=== PATIENT | female | born 1975 | race Caucasian/White ===

== ENCOUNTER 2022-05-14 15:29 | Inpatient (IN) | payer MEDICARE, MEDICAID ==
[~2022-05-14] VITALS: Ht 160 cm; Wt 79.3 kg
[~2022-05-14 15:29] MED LIST: BUSP5TAB3; CORTSUSP; DIVA-85; LEVO112T7
[2022-05-14 16:17] LABS: COVID AG,FIA SOURCE NASOPHARYNGEAL
[2022-05-14 16:54] LABS: BASOPHILS % (AUTO) 0.2 % (0.0-2.0); EOSINOPHILS % (AUTO) 0 % (1.0-6.0); HEMATOCRIT 38.7 % (36-46); LYMPHOCYTES % (AUTO) 4.9 % (22.0-44.0); MEAN CORPUSCULAR HEMOGLOBIN 30.7 pg (26.0-34.0); MEAN CORPUSCULAR HGB CONC 33.7 G/dL (31.0-37.0); MEAN CORPUSCULAR VOLUME 91 fL (80-100); MONOCYTES # (AUTO) 1.1 K/uL (0.1-1.0); MONOCYTES % (AUTO) 5.7 % (2.0-9.0); NEUTROPHILS # (AUTO) 17.8 K/uL (1.8-7.7); PLATELET COUNT (AUTO) 334 K/uL (150-450); RED BLOOD CELL COUNT(AUTO) 4.24 MIL/uL (4.00-5.20); RED CELL DISTRIBUTION WIDTH 12.6 % (11.5-14.5)
[2022-05-14 16:55] LABS: NEUTROPHILS % (AUTO) 89.2 % (40.0-70.0)
[2022-05-14 17:09] LABS: PLATELET MORPHOLOGY COMMENT GIANT PLTS PRESENT
[2022-05-14 17:11] LABS: LITHIUM 0.61 mmol/L (0.60-1.20)
[2022-05-14 17:15] LABS: ALANINE AMINOTRANSFERASE 20 U/L (12-78); ALBUMIN 4.1 g/dL (3.4-5.0); ALKALINE PHOSPHATASE 103 U/L (46-116); ANION GAP 13 mmol/L (8-16); ASPARTATE AMINOTRANSFERASE 19 U/L (15-37); BILIRUBIN,TOTAL 0.4 mg/dL (0.1-1.0); CALCIUM, TOTAL 9.3 mg/dL (8.8-10.5); CARBON DIOXIDE 21 mmol/L (22-29); CHLORIDE 103 mmol/L (98-107); GLUCOSE,RANDOM 121 mg/dL (70-110); HCG,QUANTITATIVE < 1 mIU/mL (0-6); SODIUM SERUM 137 mmol/L (136-145); TOTAL PROTEIN, SERUM 7.8 g/dL (6.4-8.2); UREA NITROGEN, BLOOD 5 mg/dL (7-18)
[2022-05-14] MEDS ORDERED: HALOPERIDOL 5 MG TABLET PO ONE (17:15)
[2022-05-14] MEDS ORDERED: LORazepam 2 MG TABLET PO ONE (17:15)
[2022-05-14 17:19] LABS: GLOMERULAR FILTR. RATE CALC > 60 mL/min (>60); POTASSIUM 2.8 mmol/L (3.5-5.1)
[2022-05-14] MEDS ORDERED: POTASSIUM CHLORIDE 20 MEQ ER TABLET PO ONE (17:30)
[2022-05-14 21:41] VITALS: BP 138/88
[2022-05-15] MEDS ORDERED: PETROLATUM,WHITE 28 GM JELLY TP PRN (06:15)
[2022-05-15] MEDS ORDERED: NICOTINE 14 MG/24 HOUR PATCH TD PRN (06:15)
[2022-05-15] MEDS ORDERED: DOCUSATE SODIUM 100 MG CAPSULE PO PRN (06:15)
[2022-05-15] MEDS ORDERED: IBUPROFEN 400 MG TABLET PO PRN (06:15)
[2022-05-15] MEDS ORDERED: MAGNESIUM HYDROXIDE SUSPENSION 30 ML UDCUP PO PRN (06:15)
[2022-05-15] MEDS ORDERED: CloNIDine HCL 0.1 MG TABLET PO PRN (06:15)
[2022-05-15] MEDS ORDERED: ONDANSETRON HCL 4 MG TABLET PO PRN (06:15)
[2022-05-15] MEDS ORDERED: GuaiFENesin/D-METHORPHAN [SUGAR-FREE] 200-20MG/10 ML SYRUP UDCUP PO PRN (06:15)
[2022-05-15] MEDS ORDERED: LOPERAMIDE HCL 2 MG CAPSULE PO PRN (06:15)
[2022-05-15] MEDS ORDERED: ALBUTEROL SULFATE HFA 90 MCG/PUFF 8 GM INHALER IH PRN (06:15)
[2022-05-15] MEDS ORDERED: MAG HYDROX/AL HYDROX/SIMETH ES 30 ML SUSPENSION UDCUP PO PRN (06:15)
[2022-05-15] MEDS ORDERED: ACETAMINOPHEN 325 MG TABLET PO PRN (06:15)
[2022-05-15] MEDS: LEVOTHYROXINE SODIUM 112 MCG TABLET PO SCH (06:55)
[2022-05-15] MEDS ORDERED: LEVOTHYROXINE SODIUM 112 MCG TABLET PO SCH (08:00)
[2022-05-15 08:10] VITALS: BP 143/87
[2022-05-15 11:47] LABS: AMPHET/METH SCREEN,URINE NEGATIVE (NEGATIVE); BARBITURATE SCREEN, URINE NEGATIVE (NEGATIVE); BENZODIAZEPINES SCREEN,URINE NEGATIVE (NEGATIVE); CANNABINOID SCREEN,URINE NEGATIVE (NEGATIVE); COCAINE SCREEN,URINE NEGATIVE (NEGATIVE); METHADONE SCREEN, URINE NEGATIVE (NEGATIVE); OPIATE SCREEN,URINE NEGATIVE (NEGATIVE); PHENCYCLIDINE SCREEN,URINE NEGATIVE (NEGATIVE)
[2022-05-15] MEDS: SERTRALINE HCL 50 MG TABLET PO SCH (12:13)
[2022-05-15] MEDS: BusPIRone HCL 5 MG TABLET PO SCH (12:13)
[2022-05-15] MEDS: DIVALPROEX SODIUM 250 MG DR TABLET PO SCH (16:19)
[2022-05-15] MEDS: LORazepam 2 MG TABLET PO PRN (16:19)
[2022-05-15] MEDS: HALOPERIDOL 5 MG TABLET PO PRN (16:19)
[2022-05-15 16:38] VITALS: BP 122/71
[2022-05-16] MEDS: LEVOTHYROXINE SODIUM 112 MCG TABLET PO SCH (06:25)
[2022-05-16 07:56] LABS: ANION GAP 12 mmol/L (8-16); CARBON DIOXIDE 23 mmol/L (22-29); CHLORIDE 105 mmol/L (98-107); CREATININE 0.54 mg/dL (0.60-1.30); GLOMERULAR FILTR. RATE CALC > 60 mL/min (>60); GLUCOSE,RANDOM 113 mg/dL (70-110); POTASSIUM 3.9 mmol/L (3.5-5.1); SODIUM SERUM 140 mmol/L (136-145); UREA NITROGEN, BLOOD 9 mg/dL (7-18)
[2022-05-16 08:02] LABS: ALANINE AMINOTRANSFERASE 25 U/L (12-78); ALBUMIN 3.6 g/dL (3.4-5.0); ALKALINE PHOSPHATASE 94 U/L (46-116); ASPARTATE AMINOTRANSFERASE 21 U/L (15-37); BILIRUBIN,TOTAL 0.2 mg/dL (0.1-1.0); TOTAL PROTEIN, SERUM 7.2 g/dL (6.4-8.2)
[2022-05-16 08:20] VITALS: BP 135/86
[2022-05-16] MEDS: BusPIRone HCL 5 MG TABLET PO SCH (10:03)
[2022-05-16] MEDS: SERTRALINE HCL 50 MG TABLET PO SCH (10:03)
[2022-05-16] MEDS: DIVALPROEX SODIUM 250 MG DR TABLET PO SCH ×2 (10:03→16:31)
[2022-05-16 12:44] LABS: CHOL/HDL RATIO 2.8 (3.9-5.7); CHOLESTEROL 142 mg/dL (131-200); HDL CHOLESTEROL 50 mg/dL (40-60); LDL CHOL (CALC.) 76 mg/dL (0-130); THYROID STIMULATING HORMONE 1.13 uIU/mL (0.36-3.74); TRIGLYCERIDES 81 mg/dL (15-150)
[2022-05-16 16:13] VITALS: BP 152/99
[2022-05-16] MEDS: ZOLPIDEM TARTRATE 10 MG TABLET PO PRN (22:37)
[2022-05-17] MEDS: LEVOTHYROXINE SODIUM 112 MCG TABLET PO SCH (06:33)
[2022-05-17 07:53] LABS: BASOPHILS % (AUTO) 0.9 % (0.0-2.0); EOSINOPHILS % (AUTO) 0.6 % (1.0-6.0); HEMATOCRIT 37.7 % (36-46); HEMOGLOBIN 12.7 g/dL (12.0-16.0); LYMPHOCYTES # (AUTO) 2.3 K/uL (1.0-4.8); MEAN CORPUSCULAR HEMOGLOBIN 31.2 pg (26.0-34.0); MEAN CORPUSCULAR HGB CONC 33.9 G/dL (31.0-37.0); MEAN CORPUSCULAR VOLUME 92 fL (80-100); MONOCYTES # (AUTO) 0.6 K/uL (0.1-1.0); MONOCYTES % (AUTO) 7.3 % (2.0-9.0); NEUTROPHILS # (AUTO) 5.3 K/uL (1.8-7.7); NEUTROPHILS % (AUTO) 63.2 % (40.0-70.0); PLATELET COUNT (AUTO) 317 K/uL (150-450); RED BLOOD CELL COUNT(AUTO) 4.09 MIL/uL (4.00-5.20); RED CELL DISTRIBUTION WIDTH 12.9 % (11.5-14.5)
[2022-05-17 08:00] VITALS: BP 136/83
[2022-05-17 08:02] LABS: ANION GAP 10 mmol/L (8-16); CALCIUM, TOTAL 8.9 mg/dL (8.8-10.5); CARBON DIOXIDE 23 mmol/L (22-29); CHLORIDE 105 mmol/L (98-107); CREATININE 0.64 mg/dL (0.60-1.30); GLUCOSE,RANDOM 146 mg/dL (70-110); SODIUM SERUM 138 mmol/L (136-145); UREA NITROGEN, BLOOD 9 mg/dL (7-18)
[2022-05-17 08:03] LABS: GLOMERULAR FILTR. RATE CALC > 60 mL/min (>60)
[2022-05-17 08:24] VITALS: BP 136/83
[2022-05-17] MEDS: DIVALPROEX SODIUM 250 MG DR TABLET PO SCH ×2 (09:30→16:59)
[2022-05-17] MEDS: BusPIRone HCL 5 MG TABLET PO SCH (09:30)
[2022-05-17] MEDS: SERTRALINE HCL 50 MG TABLET PO SCH (09:31)
[2022-05-17 16:06] VITALS: BP 131/82
[2022-05-17 20:07] VITALS: BP 133/77
[2022-05-17] MEDS: ZOLPIDEM TARTRATE 10 MG TABLET PO PRN (21:08)
[2022-05-18] MEDS: LEVOTHYROXINE SODIUM 112 MCG TABLET PO SCH (06:37)
[2022-05-18] MEDS: DIVALPROEX SODIUM 250 MG DR TABLET PO SCH ×2 (08:04→16:58)
[2022-05-18] MEDS: SERTRALINE HCL 50 MG TABLET PO SCH (08:04)
[2022-05-18] MEDS: BusPIRone HCL 5 MG TABLET PO SCH (08:04)
[2022-05-18 08:36] VITALS: BP 154/83
[2022-05-18 17:09] VITALS: BP 136/89
[2022-05-18] MEDS: ZOLPIDEM TARTRATE 10 MG TABLET PO PRN (20:54)
[2022-05-18] MEDS: HALOPERIDOL 5 MG TABLET PO PRN (23:28)
[2022-05-18] MEDS: LORazepam 2 MG TABLET PO PRN (23:28)
[2022-05-19] MEDS: LEVOTHYROXINE SODIUM 112 MCG TABLET PO SCH (06:30)
[2022-05-19 08:08] VITALS: BP 121/85
[2022-05-19] MEDS: SERTRALINE HCL 50 MG TABLET PO SCH (08:12)
[2022-05-19] MEDS: HALOPERIDOL 5 MG TABLET PO PRN (08:12)
[2022-05-19] MEDS: DIVALPROEX SODIUM 250 MG DR TABLET PO SCH ×2 (08:12→16:26)
[2022-05-19] MEDS: LORazepam 2 MG TABLET PO PRN (08:13)
[2022-05-19] MEDS: BusPIRone HCL 5 MG TABLET PO SCH (08:15)
[2022-05-19 16:01] VITALS: BP 122/84
[2022-05-19] MEDS: ZOLPIDEM TARTRATE 10 MG TABLET PO PRN (21:20)
[2022-05-20] MEDS: LEVOTHYROXINE SODIUM 112 MCG TABLET PO SCH (06:55)
[2022-05-20 06:57] LABS: COVID AG,FIA SOURCE NASAL SWAB
[2022-05-20 08:01] VITALS: BP 115/76
[2022-05-20] MEDS: DIVALPROEX SODIUM 250 MG DR TABLET PO SCH (08:13)
[2022-05-20] MEDS: SERTRALINE HCL 50 MG TABLET PO SCH (08:13)
[2022-05-20] MEDS: BusPIRone HCL 5 MG TABLET PO SCH (08:13)
[2022-05-20] MEDS ORDERED: SERT-439 PO (11:58)
[2022-05-20] MEDS ORDERED: BUSP5TAB3 PO (11:58)
[2022-05-20] MEDS ORDERED: DIVA-111 PO (11:58)
[2022-05-20] MEDS ORDERED: LEVO112T7 PO (11:58)
== END 2022-05-20 14:25 | disposition home or self-care (01) | DRG 885 ==
LOC: EMS 15:31 → 3EC 20:04
PROVIDERS: ADMIT Psychiatry & Neurology Child & Adolescent Psychiatry; ATTEND Psychiatry & Neurology Child & Adolescent Psychiatry
DX: F20.0 Paranoid schizophrenia (principal); F10.10 Alcohol abuse, uncomplicated; D72.829 Elevated white blood cell count, unspecified; F41.9 Anxiety disorder, unspecified; E03.9 Hypothyroidism, unspecified; E87.6 Hypokalemia; R73.9 Hyperglycemia, unspecified; Z20.822 Contact with and (suspected) exposure to COVID-19; Z78.1 Physical restraint status; Z79.899 Other long term (current) drug therapy; Z91.14 Patient's other noncompliance with medication regimen
CPT/HCPCS: 80048; 80053; 80061; 80164; 80178; 80307; 83036; 84443; 84702; 84703; 85025; 99285; G0480

== ENCOUNTER 2022-05-27 15:09 | Inpatient (IN) | payer MEDICARE, MEDICAID ==
[~2022-05-27] VITALS: Ht 162.6 cm; Wt 81.7 kg
[~2022-05-27 15:09] MED LIST changes: -BUSP5TAB3; +BUSP5TAB3 PO; -CORTSUSP; +DIVA-111 PO; -DIVA-85; -LEVO112T7; +LEVO112T7 PO; +SERT-439 PO
[2022-05-27 17:28] LABS: BASOPHILS % (AUTO) 1.2 % (0.0-2.0); EOSINOPHILS % (AUTO) 0.1 % (1.0-6.0); HEMATOCRIT 36.9 % (36-46); HEMOGLOBIN 12.3 g/dL (12.0-16.0); LYMPHOCYTES # (AUTO) 2.5 K/uL (1.0-4.8); LYMPHOCYTES % (AUTO) 18.6 % (22.0-44.0); MEAN CORPUSCULAR HEMOGLOBIN 30.9 pg (26.0-34.0); MEAN CORPUSCULAR HGB CONC 33.4 G/dL (31.0-37.0); MEAN CORPUSCULAR VOLUME 93 fL (80-100); MONOCYTES # (AUTO) 1.1 K/uL (0.1-1.0); MONOCYTES % (AUTO) 8.1 % (2.0-9.0); NEUTROPHILS # (AUTO) 9.9 K/uL (1.8-7.7); PLATELET COUNT (AUTO) 282 K/uL (150-450); RED BLOOD CELL COUNT(AUTO) 3.99 MIL/uL (4.00-5.20); RED CELL DISTRIBUTION WIDTH 13.1 % (11.5-14.5)
[2022-05-27 17:30] LABS: COVID AG,FIA SOURCE NASOPHARYNGEAL
[2022-05-27 17:37] LABS: ANION GAP 13 mmol/L (8-16); CALCIUM, TOTAL 8.6 mg/dL (8.8-10.5); CARBON DIOXIDE 26 mmol/L (22-29); CHLORIDE 101 mmol/L (98-107); CREATININE 0.53 mg/dL (0.60-1.30); GLUCOSE,RANDOM 132 mg/dL (70-110); POTASSIUM 3.1 mmol/L (3.5-5.1); SODIUM SERUM 140 mmol/L (136-145); UREA NITROGEN, BLOOD 16 mg/dL (7-18)
[2022-05-27 17:38] LABS: GLOMERULAR FILTR. RATE CALC > 60 mL/min (>60)
[2022-05-27 17:53] LABS: ALANINE AMINOTRANSFERASE 21 U/L (12-78); ALBUMIN 3.7 g/dL (3.4-5.0); ALKALINE PHOSPHATASE 98 U/L (46-116); ASPARTATE AMINOTRANSFERASE 18 U/L (15-37); BILIRUBIN,TOTAL 0.3 mg/dL (0.1-1.0); HCG,QUANTITATIVE < 1 mIU/mL (0-6); TOTAL PROTEIN, SERUM 7.3 g/dL (6.4-8.2); VALPROIC ACID 8 mcg/mL (50-100)
[2022-05-27] MEDS ORDERED: POTASSIUM CHLORIDE 20 MEQ ER TABLET PO ONE (18:15)
[2022-05-27] MEDS ORDERED: LORazepam 2 MG TABLET PO ONE (18:15)
[2022-05-27] MEDS ORDERED: DiphenhydrAMINE HCL 50 MG CAPSULE PO ONE (18:15)
[2022-05-27] MEDS ORDERED: HALOPERIDOL 5 MG TABLET PO ONE (18:15)
[2022-05-27] MEDS ORDERED: OXCA600T18 PO (18:19)
[2022-05-27] MEDS ORDERED: LITH450CRT PO (18:19)
[2022-05-27] MEDS ORDERED: OLAN10 PO (18:19)
[2022-05-27] MEDS ORDERED: OLAN5TAB77 PO (18:19)
[2022-05-27] MEDS ORDERED: LORazepam 2 MG/ML VIAL IM ONE (19:30)
[2022-05-27] MEDS ORDERED: DiphenhydrAMINE HCL 50 MG/ML VIAL IM ONE (19:30)
[2022-05-27] MEDS ORDERED: HALOPERIDOL LACTATE 5 MG/ML VIAL IM ONE (19:30)
[2022-05-28 03:38] VITALS: BP 120/76
[2022-05-28 07:55] VITALS: BP 121/76
[2022-05-28] MEDS: HALOPERIDOL 5 MG TABLET PO PRN (08:28)
[2022-05-28] MEDS: LORazepam 2 MG TABLET PO PRN (08:28)
[2022-05-28 09:21] VITALS: BP 121/76
[2022-05-28] MEDS: BusPIRone HCL 15 MG TABLET PO SCH ×2 (10:27→17:14)
[2022-05-28] MEDS: OXcarbazepine 300 MG TABLET PO SCH ×2 (10:27→17:14)
[2022-05-28] MEDS: DIVALPROEX SODIUM 250 MG DR TABLET PO SCH ×2 (10:28→17:14)
[2022-05-28] MEDS ORDERED: DOCUSATE SODIUM 100 MG CAPSULE PO PRN (19:45)
[2022-05-28] MEDS ORDERED: LOPERAMIDE HCL 2 MG CAPSULE PO PRN (19:45)
[2022-05-28] MEDS ORDERED: GuaiFENesin/D-METHORPHAN [SUGAR-FREE] 200-20MG/10 ML SYRUP UDCUP PO PRN (19:45)
[2022-05-28] MEDS ORDERED: MAG HYDROX/AL HYDROX/SIMETH ES 30 ML SUSPENSION UDCUP PO PRN (19:45)
[2022-05-28] MEDS ORDERED: IBUPROFEN 400 MG TABLET PO PRN (19:45)
[2022-05-28] MEDS ORDERED: ACETAMINOPHEN 325 MG TABLET PO PRN (19:45)
[2022-05-28] MEDS ORDERED: MAGNESIUM HYDROXIDE SUSPENSION 30 ML UDCUP PO PRN (19:45)
[2022-05-28] MEDS ORDERED: PETROLATUM,WHITE 28 GM JELLY TP PRN (19:45)
[2022-05-28] MEDS ORDERED: ALBUTEROL SULFATE HFA 90 MCG/PUFF 8 GM INHALER IH PRN (19:45)
[2022-05-28] MEDS ORDERED: NICOTINE 14 MG/24 HOUR PATCH TD PRN (19:45)
[2022-05-28] MEDS ORDERED: ONDANSETRON HCL 4 MG TABLET PO PRN (19:45)
[2022-05-28] MEDS ORDERED: CloNIDine HCL 0.1 MG TABLET PO PRN (19:45)
[2022-05-28] MEDS ORDERED: POTASSIUM CHLORIDE 20 MEQ ER TABLET PO ONE (20:00)
[2022-05-28 20:17] VITALS: BP 113/74
[2022-05-28] MEDS: OLANZapine 7.5 MG TABLET PO SCH (21:19)
[2022-05-29 07:17] LABS: EOSINOPHILS % (AUTO) 0.3 % (1.0-6.0); HEMATOCRIT 37.3 % (36-46); HEMOGLOBIN 12.6 g/dL (12.0-16.0); LYMPHOCYTES # (AUTO) 2.4 K/uL (1.0-4.8); LYMPHOCYTES % (AUTO) 25.2 % (22.0-44.0); MEAN CORPUSCULAR HGB CONC 33.7 G/dL (31.0-37.0); MEAN CORPUSCULAR VOLUME 92 fL (80-100); MONOCYTES # (AUTO) 0.7 K/uL (0.1-1.0); MONOCYTES % (AUTO) 7.5 % (2.0-9.0); NEUTROPHILS # (AUTO) 6.4 K/uL (1.8-7.7); PLATELET COUNT (AUTO) 272 K/uL (150-450); RED BLOOD CELL COUNT(AUTO) 4.05 MIL/uL (4.00-5.20); RED CELL DISTRIBUTION WIDTH 12.9 % (11.5-14.5)
[2022-05-29 07:47] LABS: FREE T4 (FREE THYROXINE) 1.32 ng/dL (0.76-1.46); POTASSIUM 3.6 mmol/L (3.5-5.1); THYROID STIMULATING HORMONE 2.2 uIU/mL (0.36-3.74)
[2022-05-29] MEDS: OXcarbazepine 300 MG TABLET PO SCH ×2 (08:23→16:26)
[2022-05-29] MEDS: BusPIRone HCL 15 MG TABLET PO SCH ×2 (08:23→16:25)
[2022-05-29] MEDS: DIVALPROEX SODIUM 250 MG DR TABLET PO SCH ×2 (08:23→16:25)
[2022-05-29 08:29] VITALS: BP 127/78
[2022-05-29] MEDS: LORazepam 2 MG TABLET PO PRN ×2 (09:13→17:56)
[2022-05-29] MEDS: HALOPERIDOL 5 MG TABLET PO PRN (17:56)
[2022-05-29 20:15] VITALS: BP 121/73
[2022-05-29] MEDS: OLANZapine 7.5 MG TABLET PO SCH (20:42)
[2022-05-30] VITALS (9 sets, daily range): BP systolic 120–167; BP diastolic 76–91
[2022-05-30] MEDS: DIVALPROEX SODIUM 250 MG DR TABLET PO SCH ×2 (08:22→16:12)
[2022-05-30] MEDS: HALOPERIDOL 5 MG TABLET PO PRN ×2 (08:23→13:33)
[2022-05-30] MEDS: BusPIRone HCL 15 MG TABLET PO SCH ×2 (08:23→16:12)
[2022-05-30] MEDS: LORazepam 2 MG TABLET PO PRN ×2 (08:23→13:23)
[2022-05-30] MEDS: OXcarbazepine 300 MG TABLET PO SCH ×2 (08:27→16:12)
[2022-05-30] MEDS: OLANZapine 7.5 MG TABLET PO SCH (20:13)
[2022-05-31 00:42] VITALS: BP 150/90
[2022-05-31] MEDS: DIVALPROEX SODIUM 250 MG DR TABLET PO SCH ×2 (08:38→15:54)
[2022-05-31] MEDS: OXcarbazepine 300 MG TABLET PO SCH ×2 (08:38→15:54)
[2022-05-31] MEDS: BusPIRone HCL 15 MG TABLET PO SCH ×2 (08:39→15:54)
[2022-05-31 12:17] VITALS: BP 135/78
[2022-05-31 20:56] VITALS: BP 141/87
[2022-05-31] MEDS: OLANZapine 7.5 MG TABLET PO SCH (21:07)
[2022-05-31] MEDS: ZOLPIDEM TARTRATE 10 MG TABLET PO PRN (21:08)
[2022-05-31] MEDS: LORazepam 2 MG TABLET PO PRN (21:09)
[2022-06-01] MEDS: OXcarbazepine 300 MG TABLET PO SCH ×2 (08:33→16:28)
[2022-06-01] MEDS: DIVALPROEX SODIUM 250 MG DR TABLET PO SCH ×2 (08:33→16:28)
[2022-06-01] MEDS: BusPIRone HCL 15 MG TABLET PO SCH ×2 (08:33→16:28)
[2022-06-01 08:36] VITALS: BP 140/83
[2022-06-01] MEDS: OLANZapine 7.5 MG TABLET PO SCH (21:42)
[2022-06-02 08:32] VITALS: BP 135/76
[2022-06-02] MEDS: BusPIRone HCL 15 MG TABLET PO SCH ×2 (08:55→17:14)
[2022-06-02] MEDS: DIVALPROEX SODIUM 250 MG DR TABLET PO SCH ×2 (08:55→17:15)
[2022-06-02] MEDS: OXcarbazepine 300 MG TABLET PO SCH ×2 (08:56→17:15)
[2022-06-02 16:13] VITALS: BP 130/88
[2022-06-02 17:21] LABS: GLUCOMETER DEV NAME(LOC) POC.BV
[2022-06-02 20:00] VITALS: BP 128/76
[2022-06-02] MEDS: OLANZapine 7.5 MG TABLET PO SCH (20:50)
[2022-06-03] MEDS: LORazepam 2 MG TABLET PO PRN ×2 (03:35→20:05)
[2022-06-03 08:34] VITALS: BP 127/85
[2022-06-03] MEDS: OXcarbazepine 300 MG TABLET PO SCH ×2 (09:08→16:53)
[2022-06-03] MEDS: DIVALPROEX SODIUM 250 MG DR TABLET PO SCH ×2 (09:08→16:53)
[2022-06-03] MEDS: BusPIRone HCL 15 MG TABLET PO SCH ×2 (09:08→16:53)
[2022-06-03] MEDS: OLANZapine 7.5 MG TABLET PO SCH (20:05)
[2022-06-03 21:12] VITALS: BP 135/81
[2022-06-04] MEDS: OXcarbazepine 300 MG TABLET PO SCH ×2 (07:56→16:07)
[2022-06-04] MEDS: DIVALPROEX SODIUM 250 MG DR TABLET PO SCH ×2 (07:56→16:07)
[2022-06-04] MEDS: BusPIRone HCL 15 MG TABLET PO SCH ×2 (07:56→16:07)
[2022-06-04 13:55] VITALS: BP 130/81
[2022-06-04 16:05] VITALS: BP 130/80
[2022-06-04] MEDS: OLANZapine 7.5 MG TABLET PO SCH (20:09)
[2022-06-04 21:54] VITALS: BP 130/80
[2022-06-05] MEDS: OXcarbazepine 300 MG TABLET PO SCH ×2 (08:00→16:43)
[2022-06-05] MEDS: LORazepam 2 MG TABLET PO PRN (08:01)
[2022-06-05] MEDS: DIVALPROEX SODIUM 250 MG DR TABLET PO SCH ×2 (08:01→16:42)
[2022-06-05] MEDS: BusPIRone HCL 15 MG TABLET PO SCH ×2 (08:01→16:42)
[2022-06-05 08:05] VITALS: BP 133/80
[2022-06-05] MEDS: OLANZapine 7.5 MG TABLET PO SCH (20:01)
[2022-06-05 20:12] VITALS: BP 111/76
[2022-06-06 04:16] VITALS: BP 126/80
[2022-06-06 08:12] VITALS: BP 114/78
[2022-06-06] MEDS: BusPIRone HCL 15 MG TABLET PO SCH ×2 (08:15→16:05)
[2022-06-06] MEDS: DIVALPROEX SODIUM 250 MG DR TABLET PO SCH ×2 (08:15→16:05)
[2022-06-06] MEDS: OXcarbazepine 300 MG TABLET PO SCH ×2 (08:15→16:06)
[2022-06-06] MEDS: LORazepam 2 MG TABLET PO PRN ×2 (08:31→22:48)
[2022-06-06] MEDS: OLANZapine 7.5 MG TABLET PO SCH (20:02)
[2022-06-06 20:30] VITALS: BP 124/79
[2022-06-07 08:07] VITALS: BP 122/74
[2022-06-07] MEDS: OXcarbazepine 300 MG TABLET PO SCH ×2 (08:15→16:11)
[2022-06-07] MEDS: BusPIRone HCL 15 MG TABLET PO SCH ×2 (08:15→16:11)
[2022-06-07] MEDS: DIVALPROEX SODIUM 250 MG DR TABLET PO SCH ×2 (08:15→16:11)
[2022-06-07] MEDS: LORazepam 2 MG TABLET PO PRN (08:57)
[2022-06-07] MEDS: OLANZapine 7.5 MG TABLET PO SCH (20:03)
[2022-06-08 04:15] VITALS: BP 144/91
[2022-06-08 08:00] VITALS: BP 106/70
[2022-06-08] MEDS: BusPIRone HCL 15 MG TABLET PO SCH ×2 (08:23→16:48)
[2022-06-08] MEDS: OXcarbazepine 300 MG TABLET PO SCH ×2 (08:23→16:48)
[2022-06-08] MEDS: DIVALPROEX SODIUM 250 MG DR TABLET PO SCH ×2 (08:23→16:48)
[2022-06-08] MEDS: LORazepam 2 MG TABLET PO PRN (08:50)
[2022-06-08] MEDS: OLANZapine 7.5 MG TABLET PO SCH (20:12)
[2022-06-08 20:39] VITALS: BP 109/69
[2022-06-09 04:42] VITALS: BP 118/79
[2022-06-09] MEDS: DIVALPROEX SODIUM 250 MG DR TABLET PO SCH ×2 (08:29→16:56)
[2022-06-09] MEDS: BusPIRone HCL 15 MG TABLET PO SCH ×2 (08:29→16:56)
[2022-06-09] MEDS: OXcarbazepine 300 MG TABLET PO SCH ×2 (08:29→16:56)
[2022-06-09 08:32] VITALS: BP 130/74
[2022-06-09] MEDS: OLANZapine 7.5 MG TABLET PO SCH (19:59)
[2022-06-09 21:53] VITALS: BP 124/68
[2022-06-10] MEDS: ZOLPIDEM TARTRATE 10 MG TABLET PO PRN (02:03)
[2022-06-10] MEDS: DIVALPROEX SODIUM 250 MG DR TABLET PO SCH (08:14)
[2022-06-10] MEDS: BusPIRone HCL 15 MG TABLET PO SCH (08:14)
[2022-06-10] MEDS: OXcarbazepine 300 MG TABLET PO SCH (08:14)
[2022-06-10 08:17] VITALS: BP 139/88
[2022-06-10] MEDS: LORazepam 2 MG TABLET PO PRN (08:42)
[2022-06-10] MEDS ORDERED: OLAN7.5T22 PO ×2 (09:50→10:30)
[2022-06-10] MEDS ORDERED: BUSP15 PO ×2 (09:50→10:30)
[2022-06-10] MEDS ORDERED: DIVA-111 PO (10:30)
[2022-06-10] MEDS ORDERED: OXCA300T57 PO (10:30)
[2022-06-10 16:56] LABS: GLUCOMETER DEV NAME(LOC) POC.BV
== END 2022-06-10 19:01 | disposition home or self-care (01) | DRG 885 ==
LOC: EMS 15:14 → B3A 05-28 01:11
PROVIDERS: ADMIT Psychiatry & Neurology Child & Adolescent Psychiatry; ATTEND Psychiatry & Neurology Child & Adolescent Psychiatry
DX: F20.0 Paranoid schizophrenia (principal); D72.829 Elevated white blood cell count, unspecified; E03.9 Hypothyroidism, unspecified; E87.6 Hypokalemia; F19.10 Other psychoactive substance abuse, uncomplicated; S09.93XA Unspecified injury of face, initial encounter; W18.39XA Other fall on same level, initial encounter; F41.1 Generalized anxiety disorder; Z20.822 Contact with and (suspected) exposure to COVID-19; F94.0 Selective mutism; K21.9 Gastro-esophageal reflux disease without esophagitis; Z59.00 Homelessness unspecified; Z78.1 Physical restraint status; Z91.19 Patient's noncompliance with other medical treatment and regimen; Z79.899 Other long term (current) drug therapy; Z71.51 Drug abuse counseling and surveillance of drug abuser; Y93.89 Activity, other specified; Y92.89 Other specified places as the place of occurrence of the external cause; Y99.8 Other external cause status
CPT/HCPCS: 80053; 80164; 84132; 84439; 84443; 84702; 85025; 87081; 99285; G0480; J1200; J1630; J2060

== ENCOUNTER 2022-05-31 03:13 | Emergency (ER) | payer MEDICARE, OTHER ==
[~2022-05-31] VITALS: Ht 167.6 cm; Wt 79.5 kg
[~2022-05-31 03:13] MED LIST changes: +LITH450CRT PO; +OLAN10 PO; +OLAN5TAB77 PO; +OXCA600T18 PO
[2022-05-31 05:18] VITALS: BP 157/90
== END 2022-05-31 06:33 | disposition home or self-care (01) ==
LOC: EMS 03:14
DX: S09.90XA Unspecified injury of head, initial encounter (principal); F20.9 Schizophrenia, unspecified; E03.9 Hypothyroidism, unspecified; M25.561 Pain in right knee; Z86.59 Personal history of other mental and behavioral disorders; W19.XXXA Unspecified fall, initial encounter; Y93.89 Activity, other specified; Y92.89 Other specified places as the place of occurrence of the external cause; Y99.8 Other external cause status
CPT/HCPCS: 70450; 99284

== ENCOUNTER 2025-06-14 03:01 | Emergency (ER) | payer OTHER ==
[~2025-06-14] VITALS: Ht 162.6 cm; Wt 84.1 kg
[~2025-06-14 03:01] MED LIST changes: +BUSP15 PO; -BUSP5TAB3 PO; -LEVO112T7 PO; -LITH450CRT PO; -OLAN10 PO; -OLAN5TAB77 PO; +OLAN7.5T22 PO; +OXCA300T70 PO; -OXCA600T18 PO; -SERT-439 PO
[2025-06-14 03:14] VITALS: TEMP 98.1
[2025-06-14 06:24] VITALS: BP 139/78; PULSE 77; RESP 15; O2SAT 99
[2025-06-14] MEDS ORDERED: CEPH-558 PO (06:38)
== END 2025-06-14 06:46 | disposition home or self-care (01) ==
LOC: EMS 03:01
DX: L08.9 Local infection of the skin and subcutaneous tissue, unspecified (principal); E03.9 Hypothyroidism, unspecified; F20.9 Schizophrenia, unspecified; F31.9 Bipolar disorder, unspecified; Z79.899 Other long term (current) drug therapy
CPT/HCPCS: 99283; Z7502